=== PATIENT | female | born 1950 ===

== ENCOUNTER 2016-05-07 10:00 | Outpatient (RCR) | payer MEDICARE | END 2016-05-14 | disposition home or self-care (01) | LOC: PTY 10:00 | DX: M23.232 Derangement of other medial meniscus due to old tear or injury, left knee (principal); M54.5 Low back pain | CPT/HCPCS: 97035; 97110; 97161; G0283; G8978; G8979 ==

== ENCOUNTER 2016-05-20 10:00 | Outpatient (RCR) | payer MEDICARE | END 2016-06-14 | disposition home or self-care (01) | LOC: PTY 10:00 | DX: M54.5 Low back pain (principal); M23.232 Derangement of other medial meniscus due to old tear or injury, left knee | CPT/HCPCS: 97035; 97110; 97140; G0283 ==

== ENCOUNTER 2016-06-18 10:00 | Outpatient (RCR) | payer MEDICARE | END 2016-07-14 | disposition home or self-care (01) | LOC: PTY 10:00 | DX: M23.232 Derangement of other medial meniscus due to old tear or injury, left knee (principal) | CPT/HCPCS: 97035; 97110; G0283; G8978; G8979 ==